=== PATIENT | female | born 1950 | race Caucasian/White ===

== ENCOUNTER 2017-07-26 08:45 | Outpatient (CLI) | payer MEDICARE, BC | END 2017-07-26 08:46 | disposition home or self-care (01) | LOC: BICMAMMO 08:45 | PROVIDERS: ATTEND Family Medicine | DX: Z12.31 Encounter for screening mammogram for malignant neoplasm of breast (principal); Z80.3 Family history of malignant neoplasm of breast | CPT/HCPCS: 77063; 77067; G0202 ==

== ENCOUNTER 2018-08-27 08:56 | Outpatient (CLI) | payer MEDICARE, BC | END 2018-08-27 08:57 | disposition home or self-care (01) | LOC: BICMAMMO 08:56 | PROVIDERS: ATTEND Family Medicine | DX: Z12.31 Encounter for screening mammogram for malignant neoplasm of breast (principal); Z80.3 Family history of malignant neoplasm of breast | CPT/HCPCS: 77063; 77067 ==

== ENCOUNTER 2018-09-11 07:56 | Outpatient (CLI) | payer MEDICARE, BC ==
--- NOTE | 2018-09-11 10:04 | BD ---
BONE DENSITOMETRY USING DEXA: HISTORY: Postmenopausal screening for osteoporosis. LUMBAR SPINE BMD (g/cm2) T-SCORE Z-SCORE L1 1.031 0.4 2,2 L2 1.064 0.3 2.4 L3 1.071 -0.1 2.1 L4 1.032 -0.3 2.0 TOTAL 1.049 0.0 2.1 NECK 0.591 -2.3 -0.5 TOTAL 0.847 -0.8 0.7 There is an interval reduction of 8.8% in the BMD of the proximal femur since 05/21/2009. The 10-yea r fracture risk for a major osteoporotic fracture is 31% and for a hip fracture 9.3%. IMPRESSION: Osteopenia. POS: [facility]
== END 2018-09-11 07:57 | disposition home or self-care (01) ==
LOC: BICMAMMO 07:56
PROVIDERS: ATTEND Family Medicine
DX: Z13.820 Encounter for screening for osteoporosis (principal); M85.859 Other specified disorders of bone density and structure, unspecified thigh
CPT/HCPCS: 77080

== ENCOUNTER 2019-10-28 13:11 | Outpatient (CLI) | payer MEDICARE, BC ==
--- NOTE | 2019-10-28 13:46 | RAD ---
LEFT HIP 2 VIEWS: HISTORY: Left hip pain. FINDINGS/IMPRESSION: Degenerative changes are seen. No fracture, dislocation, or bony destruction is identified. POS: [facility]
== END 2019-10-28 13:12 | disposition home or self-care (01) ==
LOC: BICRAD 13:11
PROVIDERS: ATTEND Family Medicine
DX: M25.552 Pain in left hip (principal); M16.12 Unilateral primary osteoarthritis, left hip

== ENCOUNTER 2019-11-05 08:09 | Outpatient (CLI) | payer MEDICARE, BC ==
--- NOTE | 2019-11-05 09:01 | BD ---
BONE DENSITOMETRY USING DEXA: Date: 11/05/2019 HISTORY: Osteoporosis. FINDINGS: Lumbar Spine: BMD (g/cm2) L1 1.113 T-Score: 1.1 Z-Score: 3.1 L2 1.099 T-Score: 0.6 Z-Score: 2.8 L3 1.048 T-Score: -0.3 Z-Score: 1.9 L4 1.076 T-Score: 0.1 Z-Score: 2.5 L1-L4 1.083 T-Score: 0.3 Z-Score: 2.5 Femoral Neck: 0.567 T-Score: -2.5 Z-Score: -0.7 Total Femur: 0.851 T-Score: -0.7 Z-Score: 0.8 There has been interval improvement of 3.2% in the bone mineral density of the lumbar spine and an im provement of 0.5% in the bone mineral density of the proximal femur since 09/11/2018. IMPRESSION: Osteoporosis. POS: [facility]
--- NOTE | 2019-11-05 13:29 | MMO ---
Bilateral MAMMO Bilat Screen [facility]. CLINICAL HISTORY: Patient is 69 years old and is seen for screening. The patient has the following family history of breast cancer: mother, at age 70. The patient has no personal history of cancer. The patient has a history of Breast reduction in 2002. VIEWS: The views performed were: bilateral craniocaudal with tomosynthesis and bilateral mediolateral oblique with tomosynthesis. FILMS COMPARED: The present examination has been compared to prior imaging studies performed at [facility] on 06/04/2015, 06/13/2016, 07/26/2017 and 08/27/2018. This study has been interpreted with the assistance of computer-aided detection. MAMMOGRAM FINDINGS: There are scattered fibroglandular densities. Benign calcifications are noted bilaterally. There are no suspicious masses, suspicious calcifications, or new areas of architectural distortion. IMPRESSION: THERE IS NO MAMMOGRAPHIC EVIDENCE OF MALIGNANCY. A ROUTINE FOLLOW-UP MAMMOGRAM IN 1 YEAR IS RECOMMENDED. THE RESULTS OF THIS EXAM WERE SENT TO THE PATIENT. ACR BI-RADS Category 2 - Benign finding MAMMOGRAPHY NOTE: 1. A negative mammogram report should not delay a biopsy if a dominant of clinically suspicious mass is present. 2. Approximately 10% to 15% of breast cancers are not detected by mammography. 3. Adenosis and dense breasts may obscure an underlying neoplasm. Reported by: BERLIN MILLER MD Electonically Signed: [id number]
== END 2019-11-05 08:10 | disposition home or self-care (01) ==
LOC: BICMAMMO 08:09
PROVIDERS: ATTEND Family Medicine
DX: Z12.31 Encounter for screening mammogram for malignant neoplasm of breast (principal); Z13.820 Encounter for screening for osteoporosis; M81.0 Age-related osteoporosis without current pathological fracture; Z98.890 Other specified postprocedural states; Z80.3 Family history of malignant neoplasm of breast
CPT/HCPCS: 77063; 77067; 77080

== ENCOUNTER 2019-12-26 15:17 | Outpatient (CLI) | payer MEDICARE, BC ==
--- NOTE | 2019-12-26 15:59 | RAD ---
THREE VIEWS LEFT MIDDLE FINGER: 12/26/19 HISTORY: Swelling left middle finger. Left middle finger pain. No history of injury. FINDINGS: Osteoarthritis is seen involving the interphalangeal joints of the left middle finger and visualized ring finger. No fracture or dislocation is identified. No other osseous abnormalities are seen. IMPRESSION: Osteoarthritis. POS: [facility]
== END 2019-12-26 15:18 | disposition home or self-care (01) ==
LOC: BICRAD 15:17
PROVIDERS: ATTEND Physician Assistant
DX: M79.89 Other specified soft tissue disorders (principal); M79.645 Pain in left finger(s); M19.042 Primary osteoarthritis, left hand

== ENCOUNTER 2020-01-01 10:35 | Outpatient (CLI) | payer MEDICARE, BC ==
--- NOTE | 2020-01-01 12:04 | ULT ---
Ultrasound thyroid: DATE: 01/01/2020 HISTORY: 69-year-old female with "multinodular goiter" "E04.2, multiple thyroid nodules" COMPARISON: 02/18/2016 and 11/14/2013 and 12/25/2012 FINDINGS: Isthmus: 0.3 cm AP. Right lobe: 1.3 x 3.8 x 1.2 cm. Left lobe: 1.0 x 2.7 x 0.9 cm. 1.3 x 0.7 x 0.6 cm solid nodule at the right lower pole which is isoechoic relative to the thyroid pa renchyma is unchanged since 2012. Numerous tiny additional focal lesions a couple of millimeters in size each, was not measured by the school physical therapist. The small nodule in the right isthmus was not measured by the school physical therapist. It is probably unchanged. IMPRESSION: The dominant 1.3 cm solid nodule at the right lower pole is unchanged since 2012, consistent with diana ign nodule.
== END 2020-01-01 10:36 | disposition home or self-care (01) ==
LOC: BICULT 10:35
PROVIDERS: ATTEND Physician Assistant
DX: E04.2 Nontoxic multinodular goiter (principal)
CPT/HCPCS: 76536

== ENCOUNTER 2020-02-04 10:54 | Outpatient (CLI) | payer MEDICARE, BC ==
--- NOTE | 2020-02-04 11:09 | RAD ---
EXAM: 3 views of the right wrist HISTORY: Wrist pain after fall COMPARISON: None FINDINGS: 3 views of the right wrist shows no evidence of acute fracture or dislocation. Moderate dif fuse soft tissue swelling is seen. No degenerative changes are present. IMPRESSION: No evidence of acute osseous abnormality.
== END 2020-02-04 10:55 | disposition home or self-care (01) ==
LOC: BICRAD 10:54
PROVIDERS: ATTEND Family Medicine
DX: M25.531 Pain in right wrist (principal)
CPT/HCPCS: 82043

== ENCOUNTER 2020-12-07 12:02 | Outpatient (CLI) | payer MEDICARE, BC | END 2020-12-07 12:03 | disposition home or self-care (01) | LOC: BICMAMMO 12:02 | PROVIDERS: ATTEND Family Medicine | DX: Z12.31 Encounter for screening mammogram for malignant neoplasm of breast (principal); Z80.3 Family history of malignant neoplasm of breast; Z98.82 Breast implant status | CPT/HCPCS: 77063; 77067 ==

== ENCOUNTER 2020-12-20 12:08 | Outpatient (CLI) | payer MEDICARE, BC | END 2020-12-20 12:09 | disposition home or self-care (01) | LOC: BICRAD 12:08 | PROVIDERS: ATTEND Family Medicine | DX: M25.551 Pain in right hip (principal) ==

== ENCOUNTER 2021-12-14 08:22 | Outpatient (CLI) | payer MEDICARE, BC | END 2021-12-14 08:23 | disposition home or self-care (01) | LOC: BICMAMMO 08:22 | PROVIDERS: ATTEND Family Medicine | DX: Z12.31 Encounter for screening mammogram for malignant neoplasm of breast (principal); Z80.3 Family history of malignant neoplasm of breast; Z98.890 Other specified postprocedural states | CPT/HCPCS: 77063; 77067 ==

== ENCOUNTER 2022-12-06 09:02 | Outpatient (CLI) | payer MEDICARE, BC | END 2022-12-06 09:03 | disposition home or self-care (01) | LOC: BICMAMMO 09:02 | PROVIDERS: ATTEND Family Medicine | DX: M81.0 Age-related osteoporosis without current pathological fracture (principal) | CPT/HCPCS: 77080 ==

== ENCOUNTER 2024-06-27 11:09 | Outpatient (CLI) | payer MEDICARE | END 2024-06-27 11:10 | disposition home or self-care (01) | LOC: BICRAD 11:09 | PROVIDERS: ATTEND Family Medicine | DX: J18.9 Pneumonia, unspecified organism (principal) | CPT/HCPCS: 71046 ==